=== PATIENT | female | born 1990 | race Caucasian/White ===

== ENCOUNTER 2023-01-12 04:55 | Inpatient (IN) | payer OTHER, SELFPAY ==
[2023-01-12] VITALS (189 sets, daily range): BP systolic 85–201; BP diastolic 50–158; PULSE 75–187; RESP 18; TEMP 36.2–37.3; O2SAT 92–100; BMI 37.8
--- NOTE | 2023-01-12 04:55 | LDADM ---
This patient, Ashlie Mai, was admitted to Labor/Delivery/Recovery 103 on 01/12/23 at 04:55. Plans for labor, pain management and were discussed with patient. Patient/family oriented to hospital policies and general routines including ID bracelet, bed and alarms, visiting hours, pain management, procedures, bathroom and other care routines, personal items, smoking policy, room service/diet and guest tray routines, infant security routines, and visiting hours. Patient/Family are encouraged to report perceived risks to care and to ask questions if they do not understand what they are told or what they should do. See OBIX for further documentation.
[2023-01-12] MEDS: LACTATED RINGERS 1,000 ML 125 ML IV CONT ×2 (05:33→07:03)
[2023-01-12] MEDS: OXYTOCIN 30 UNITS/NS 500 ML 30 UNITS/500 ML BAG IV CONT (05:33)
[2023-01-12 05:34] LABS: Basophils Absolute Auto 0.1 K/mm3 (0.0-0.1); Basophils Percent Auto 0.6 % (0.2-1.2); Eosinophils Absolute Auto 0.1 K/mm3 (0-0.3); Eosinophils Percent Auto 0.8 % (0-4.4); Hematocrit 38.5 % (37.0-47.0); Hemoglobin 12.6 g/dL (12.0-15.0); Immature Granulocyte Absolute 0.17 K/mm3 (0.00-0.031); Immature Granulocyte Percent A 1.2 % (0-0.5); Lymphocytes Absolute Auto 2.95 K/mm3 (0.9-3.2); Lymphocytes Percent Auto 21.4 % (18.3-44.2); Mean Corpuscular HGB Conc 32.7 g/dl (32-36); Mean Corpuscular Hemoglobin 28.3 pg (26-34); Mean Corpuscular Volume 86.3 fl (80-100); Mean Platelet Volume 9.3 fl (7.4-10.4); Monocytes Percent Auto 7.5 % (2.6-8.5); Neutrophils Absolute Auto 9.4 K/mm3 (1.3-6.7); Neutrophils Percent Auto 68.5 % (45.5-73.1); Platelet Count Result 245 k/mm3 (150-375); Red Blood Count 4.46 M/mm3 (4.2-5.4); Red Cell Distribution Width 15.5 % (11.5-14.5); White Blood Count 13.8 K/mm3 (4.5-10.0)
[2023-01-12] MEDS: AMPICILLIN 2 GM/NS 100 ML 2 GM/100 ML BAG IVPB (05:34)
--- NOTE | 2023-01-12 06:34 | WPDANESEPP ---
Anes - Eval Pre Procedure Procedure: labor epidural Date/Time: 01/12/23 06:34 Surgeon: yana Preop Diagnosis: pain during labor Pre Op Diagnosis: IOL Patient Data Age: 32 Gender: F Height: 1.52 m Weight: 88 kg Last Vital Signs Pulse 96 01/12/23 06:30 BP 133/91 H 01/12/23 06:30 O2 Del Method Room Air 01/12/23 05:26 Allergies Allergy/AdvReac Type Severity Reaction Status Date / Time No Known Allergies Allergy Unknown Verified 01/24/19 13:29 Home Medications Medication Instructions Recorded Confirmed Type vit no.95-ferrous 1 tablet PO DAILY 12/27/22 12/27/22 History fumarate 28 mg-folic acid 800 mcg tablet () sertraline 50 mg tablet (Zoloft) 50 mg PO DAILY 12/27/22 12/27/22 History Laboratory Tests 01/12/23 05:22 WBC 13.8 H K/mm3 (4.5-10.0) RBC 4.46 M/mm3 (4.2-5.4) Hgb 12.6 g/dL (12.0-15.0) Hct 38.5 % (37.0-47.0) MCV 86.3 fl (80-100) MCH 28.3 pg (26-34) MCHC 32.7 g/dl (32-36) RDW 15.5 H % (11.5-14.5) Plt Count 245 k/mm3 (150-375) MPV 9.3 fl (7.4-10.4) Immature Gran % (Auto) 1.2 H % (0-0.5) Neut % (Auto) 68.5 % (45.5-73.1) Lymph % (Auto) 21.4 % (18.3-44.2) [place] % (Auto) 7.5 % (2.6-8.5) Eos % (Auto) 0.8 % (0-4.4) Baso % (Auto) 0.6 % (0.2-1.2) Lymph # (Auto) 2.95 K/mm3 (0.9-3.2) [place] # (Auto) 1.0 H K/mm3 (0.1-0.6) Eos # (Auto) 0.1 K/mm3 (0-0.3) Baso # (Auto) 0.1 K/mm3 (0.0-0.1) Abs Immat Gran (auto) 0.17 H K/mm3 (0.00-0.031) Absolute Neuts (auto) 9.4 H K/mm3 (1.3-6.7) Absolute Nucleated RBC 0.0 K/mm3 (0.0-0.012) Nucleated RBC % 0.0 % (0.0-0.2) RPR Pending Patient hx anesthesia problems: none Family hx anesthesia problems: none Results Review: All pre-operative results and documents have been reviewed as part of the pre-operative evaluation. [facility] Family History Family History (Updated 12/27/22 @ 14:30 by Radha Cevallos RN) Father AA (aortic aneurysm) Hypertension Pancreatitis Mother Hypertension Social History Social History Smoking status: Never smoker Substance use: never Lack of Transportation: No Lack of Food: Never True Current Housing: I Have Housing Concerned About Future Housing: No Difficulty Paying Gas/Electric Bills: No Difficulty Paying for Meds: No Currently Unemployed: No Education: Master's Degree or Higher Difficulty w/ Childcare or Family Care: No Spiritual care concerns: No Exam Day of Procedure 01/12/23 06:34
[2023-01-12] MEDS: ONDANSETRON INJ 4 MG/2 ML VIAL IV PUSH (06:55)
--- NOTE | 2023-01-12 07:05 | PM.IMHP ---
H&P: HPI History of Present Illness Date/Time: 01/12/23 07:05 Chief Complaint: Elevated blood pressure at term Narrative: this is a 32-year-old 2 para 1 within the EDC of 01/16/2023 presents for induction of labor secondary to mildly elevated blood pressures. She is positive for group B strep her cervix is favorable. PIH labs will be drawn. [facility] Family History Family History Father AA (aortic aneurysm) Hypertension Pancreatitis Mother Hypertension Social History Social History Smoking status: Never smoker Substance use: never Lack of Transportation: No Lack of Food: Never True Current Housing: I Have Housing Concerned About Future Housing: No Difficulty Paying Gas/Electric Bills: No Difficulty Paying for Meds: No Currently Unemployed: No Education: Master's Degree or Higher Difficulty w/ Childcare or Family Care: No Spiritual care concerns: No Meds Home Medications and Allergies Home Medications Medication Instructions Recorded Confirmed Type vit no.95-ferrous 1 tablet PO DAILY 12/27/22 12/27/22 History fumarate 28 mg-folic acid 800 mcg tablet () sertraline 50 mg tablet (Zoloft) 50 mg PO DAILY 12/27/22 12/27/22 History Allergies Allergy/AdvReac Type Severity Reaction Status Date / Time No Known Allergies Allergy Unknown Verified 01/24/19 13:29 Vital Signs Vital Signs - 24 hr 01/12/23 05:14 01/12/23 05:30 01/12/23 05:45 Pulse Rate 110 H 115 H 114 H Blood Pressure 135/101 H 127/92 H 112/89 Oxygen Delivery 01/12/23 06:00 01/12/23 06:15 01/12/23 06:30 Pulse Rate 93 91 96 Blood Pressure 131/92 H 127/88 133/91 H Oxygen Delivery 01/12/23 07:01 01/12/23 05:26 Pulse Rate 96 Blood Pressure 133/98 H Oxygen Delivery Room Air Exam Const: General: cooperative, healthy appearing and comfortable Nutritional Appearance: average body habitus Orientation/consciousness: oriented to person, oriented to place and oriented to time HENMT: Head: normal to inspection Resp: Effort & Inspection: normal respiratory effort Cardio: Rate: regular rate Rhythm: regular rhythm Heart sounds: S1 normal heart sound present and S2 normal heart sound present GI: Inspection: normal to inspection ( Gravid soft uterus) : External Female Exam: normal external appearance Speculum Exam - Vagina: normal appearance of the vagina Speculum Exam - Cervix: normal appearance of the cervix ( FHTs reassuring) H&P: Results Labs Labs: Short CBC 01/12/23 Range/Units 05:22 WBC 13.8 H (4.5-10.0) K/mm3 Hgb 12.6 (12.0-15.0) g/dL Hct 38.5 (37.0-47.0) % Plt Count 245 (150-375) k/mm3 Assessment and Plan Assessment and plan (1) Gestational hypertension: Code(s): O13.9 - Gestational [-induced] hypertension without significant proteinuria, unspecified trimester Status: Acute (2) Term : Code(s): Z34.90 - Encounter for supervision of normal , unspecified, unspecified trimester Status: Acute (3) Positive testing for group B Streptococcus: Code(s): B95.1 - Streptococcus, group B, as the cause of diseases classified elsewhere Status: Acute Plan medical induction of labor. Spontaneous vaginal delivery is expected. If she has an epidural candidate group B strep prophylaxis will be undertaken
[2023-01-12 08:05] LABS: Rapid Plasma Reagin Non-Reactive (NonReactive)
[2023-01-12] MEDS: AMPICILLIN 1 GM/NS 50 ML 1 GM/50 ML BAG IVPB (09:31)
[2023-01-12] MEDS: SODIUM CHLORIDE 0.9% IV 300 ML 600 ML I-UTERINE (10:05)
--- NOTE | 2023-01-12 11:15 | PC.NURSE ---
1035 - Introductions were made and mother shared how she would like to feed her baby with attempting to breastfeed along with her past experience which was not successful as mother desired. Encouraged mother to place infant [id number] until the first feeding if is stable and to wait on the weight to help stabilize, reduce stress, and improve latching by allowing time to explore parent's chest using instincts. Education was shared on how to protect her milk supply with latching infant and/or using hand expression to remove milk if infant doesn't latch in the first hour, then finger feed colostrum to the infant to preserve breast focus. Demonstration given on how to hand express using tool. Resources provided with educational trifold for bonding and feeding infant. Parents voiced understanding of information and to call if there is a request for assistance.
--- NOTE | 2023-01-12 12:57 | P.PCNOB_ITS ---
OB - Delivery Note Procedure Delivery date: 01/12/23 Procedure: mil Events: Gestational Hypertension Induction method: AROM Delivery augmentation: Pitocin Delivery monitor: External FHT and Internal Uterine Route of delivery: Episiotomy description: None Laceration Description: Perineal - 2nd Degree Delivery repair: vicryl Specimen: No Quantitative Blood Loss (ml): 60 Anesthesia type: Epidural Disposition: PACU Complications: amp x 2 for gbs [employer] Baby Date of : 01/12/23 Time of : 12:43 Weeks of gestation at delivery: 39 Infant gender: Male Weight (pounds): 8 Weight (ounces): 5 presentation: vertex position: Right Occiput Anterior Placenta delivery description: Spontaneous Cord Vessel Description: 3 Vessels and Delayed Cord Clamping score one minute: 8 score five minutes: 9
[2023-01-12] MEDS: OXYTOCIN 30 UNITS/NS 500 ML 30 UNITS/500 ML BAG 125 UNITS IV CONT (13:19)
[2023-01-12] MEDS: WITCH HAZEL 40 PADS 1 PAD TOPICAL (15:37)
[2023-01-12] MEDS: BENZOCAINE 20% AER SPR (*SP) 56 GM CAN 1 SPRAY TOPICAL (15:37)
--- NOTE | 2023-01-12 16:05 | PC.NURSE ---
Patient transferred to post room #[id number] via wheelchair. Support person present. Oriented to unit, room, information board, rooming in, admission packet and security measures. Patient verbalizes understanding.
[2023-01-12] MEDS: IBUPROFEN 600 MG TABLET PO (16:44)
[2023-01-13] MEDS: IBUPROFEN 600 MG TABLET PO ×3 (02:32→23:40)
[2023-01-13 03:59] VITALS: BP 118/82; PULSE 96; RESP 18; TEMP 36.6; O2SAT 98
[2023-01-13 05:02] LABS: Hematocrit 29.9 % (37.0-47.0); Hemoglobin 9.8 g/dL (12.0-15.0)
--- NOTE | 2023-01-13 06:00 | PM.DS ---
DS: Admitting Diagnosis Discharge Date 01/14/2023 Admitting Diagnosis term / positive group B strep/ gestational hypertension DS: Discharge Diagnosis Discharge Diagnosis (1) Positive testing for group B Streptococcus: Code(s): B95.1 - Streptococcus, group B, as the cause of diseases classified elsewhere Status: Acute (2) Term : Code(s): Z34.90 - Encounter for supervision of normal , unspecified, unspecified trimester Status: Acute (3) Gestational hypertension: Code(s): O13.9 - Gestational [-induced] hypertension without significant proteinuria, unspecified trimester Status: Acute DS: Summary Hospital Course Reason for hospitalization: patient was admitted for induction of labor at term secondary to elevated blood pressures. Hospital Course: The patient underwent successful is medical induction of labor with adequate group B strep prophylaxis. Her blood pressures remained stable throughout her stay. She was up, voiding without difficulty, eating regular diet, ambulating, generally without complaints Time Spent with Patient Time attestation: Total time spent providing and/or coordinating discharge services: Exam Const: General: cooperative, healthy appearing, comfortable and overweight Orientation/consciousness: oriented to person, oriented to place and oriented to time Resp: Effort & Inspection: normal respiratory effort Cardio: Rate: regular rate Rhythm: regular rhythm Heart sounds: S1 normal heart sound present and S2 normal heart sound present GI: Inspection: normal to inspection ( fundus firm below the umbilicus) Auscultation: normal bowel sounds DS: Data Data Completed and Pending Labs on day of discharge: Labs from last 24 hours 01/13/23 01/12/23 02:33 05:22 Hgb 9.8 L Hct 29.9 L RPR Non-reactive Blood Type A Positive Antibody Screen Negative Discharge Plan Discharge Attending physician on discharge: Usama Lincoln Discharging Clinician: Usama Lincoln Patient Disposition: Home, Self-Care Activity: may shower and pelvic rest Diet: heart healthy Wound Care Instructions: follow printed instructions Patient Instructions: Antibiotic Form Stand Alone Forms: General Discharge Information Follow-up/Referrals: Usama Lincoln MD [Physician] - Discharge Medications: Continued PNV cmb#95-ferrous fumarate-FA [] 28 mg iron- 800 mcg Tablet 1 tablet PO DAILY sertraline [Zoloft] 50 mg Tablet 50 mg PO DAILY Date of admission: 01/12/23 04:55 Primary Care Provider: PHYSICIAN,ACCOUNT EXECUTIVE Admitting Provider: Usama Lincoln Attending physician on admission: Usama Lincoln Condition: Stable
--- NOTE | 2023-01-13 06:02 | PM.OBPNVD ---
OB - PN: Subj Subjective Date/time seen: 01/13/23 06:02 Patient comments: no complaints and pain well controlled baby status: doing well OB - PN: Obj Data Labs 01/13/23 02:33 Labs: Laboratory Results - last 24 hr 01/12/23 01/13/23 05:22 02:33 Hgb 9.8 L Hct 29.9 L RPR Non-reactive Blood Type A Positive Antibody Screen Negative OB - PN A/P Plan day: 1 Plan: routine care Time Spent With Patient Time: Total time spent is greater than 50% in coordination of care (as documented) at patient's floor/unit and/or counseling patient: Time with patient: less than 15 minutes Exam Const: General: cooperative, healthy appearing, comfortable and overweight Orientation/consciousness: oriented to person, oriented to place and oriented to time Resp: Effort & Inspection: normal respiratory effort Cardio: Rate: regular rate Rhythm: regular rhythm Heart sounds: S1 normal heart sound present and S2 normal heart sound present GI: Inspection: normal to inspection ( fundus firm below the umbilicus)
[2023-01-13 07:25] VITALS: BP 121/79; PULSE 104; RESP 18; TEMP 36.9; O2SAT 98
[2023-01-13] MEDS: MULTIVIT/MIN/PREN/FOL AC/IRON TABLET 1 TAB PO (07:54)
[2023-01-13] MEDS: DOCUSATE SODIUM 100 MG CAPSULE PO ×2 (07:54→17:31)
[2023-01-13] MEDS: POLYSACCHARIDE IRON COMPLEX 150 MG CAPSULE PO ×2 (07:54→17:31)
--- NOTE | 2023-01-13 08:58 | WPDANLDPN2 ---
Anes-Prog Note L&D Date/Time: 01/13/23 08:58 Comfortable throughout: labor and delivery Neuraxial method: epidural Epidural/Spinal procedure site: clean & non-tender Neuro status: Neuro function grossly intact. Cardiovascular status: normal Respiratory status: normal Airway patency: baseline Mental status: baseline Post-Op hydration status: normal Vital Signs: Last Vital Signs Temp 98.5 F 01/13/23 07:25 Pulse 104 H 01/13/23 07:25 Resp 18 01/13/23 07:25 BP 121/79 01/13/23 07:25 Pulse Ox 98 01/13/23 07:25 O2 Del Method Room Air 01/12/23 19:38 Pain score (VAS): 0 I/O: Intake & Output 01/12/23 01/13/23 01/13/23 23:59 07:59 15:59 Intake Total 740 Balance 740 Post-procedural complaints: none Patient feedback: Patient satisfied with anesthetic care.
[2023-01-13 12:21] VITALS: BP 112/76; PULSE 108; RESP 16; TEMP 37.4; O2SAT 97
--- NOTE | 2023-01-13 16:06 | PC.NURSE ---
[id number] Consulted with patient to assess for needs. Once settled down a bit with [id number] and became more organized, then he effectively latched to the right breast using cross cradle positioning. has had appropriate output and reviewed signs of infant getting enough using the pie demonstration. Discussed the risks of introducing supplementation early when not medically needed and how that may affect the milk production with respect to parents choices and practice with their first child. Discussed ways to protect the milk supply with frequent every 1-3 hours. Reported to the Primary RN.
[2023-01-13 20:35] VITALS: BP 119/80; PULSE 104; RESP 16; TEMP 36.7
--- NOTE | 2023-01-14 06:19 | P.PNOB_ITS ---
OB - PN: Subj Subjective Date/time seen: 01/14/23 06:19 Patient comments: no complaints and pain well controlled baby status: doing well and nursing well OB - PN: Obj Data Labs 01/13/23 02:33 OB - PN A/P Plan day: 2 Plan: routine care, discharge home and follow up 6 weeks Time Spent With Patient Time: Total time spent is greater than 50% in coordination of care (as documented) at patient's floor/unit and/or counseling patient: Time with patient: less than 15 minutes Exam Const: General: cooperative, healthy appearing, comfortable and average body habitus Orientation/consciousness: oriented to person, oriented to place and oriented to time HENMT: Head: normal to inspection Resp: Effort & Inspection: normal respiratory effort Cardio: Rate: regular rate Rhythm: regular rhythm Heart sounds: S1 n ormal heart sound present and S2 normal heart sound present GI: Inspection: normal to inspection
[2023-01-14 08:25] VITALS: BP 111/76; PULSE 99; RESP 18; TEMP 37.4; O2SAT 100
[2023-01-14] MEDS: WITCH HAZEL 40 PADS 1 PAD TOPICAL (10:30)
[2023-01-14] MEDS: DOCUSATE SODIUM 100 MG CAPSULE PO (10:30)
[2023-01-14] MEDS: IBUPROFEN 600 MG TABLET PO (10:30)
[2023-01-14] MEDS: BENZOCAINE 20% AER SPR (*SP) 56 GM CAN 1 SPRAY TOPICAL (10:30)
[2023-01-14] MEDS: MULTIVIT/MIN/PREN/FOL AC/IRON TABLET 1 TAB PO (10:30)
[2023-01-14] MEDS: POLYSACCHARIDE IRON COMPLEX 150 MG CAPSULE PO (10:30)
--- NOTE | 2023-01-14 11:48 | PC.NURSE ---
Patient viewed the discharge video Mother & Baby Care, The First Two Weeks . Patient was given the opportunity and encouraged to ask questions. Patient verbalized understanding of information shared and has been given the mother/baby guide for home reference.
[2023-01-15 09:33] VITALS: BP 115/87; PULSE 91; RESP 20; TEMP 37.1; O2SAT 99
== END 2023-01-14 11:55 | disposition home or self-care (01) | DRG 807 ==
LOC: ANHLDR 04:58 → ANHOB2 16:08
PROVIDERS: Admitting Provider Obstetrics & Gynecology; Visit Provider Obstetrics & Gynecology
DX: O13.4 Gestational [pregnancy-induced] hypertension without significant proteinuria, complicating childbirth (principal); Z37.0 Single live birth; O99.824 Streptococcus B carrier state complicating childbirth; O77.0 Labor and delivery complicated by meconium in amniotic fluid; O70.1 Second degree perineal laceration during delivery; Z3A.39 39 weeks gestation of pregnancy
CPT/HCPCS: 36415; 85014; 85018; 85025; 86592; 86850; 86900; 86901; A9270; J0290; J2405; J2590; J2795; J7030; J7120